=== PATIENT | male | born 1975 | race African-American/Black ===

== ENCOUNTER 2018-01-31 14:48 | Emergency (ER) | payer OTHER, SELFPAY ==
--- OUTSIDE RECORDS SUMMARY | 2018-01-31 14:49 | XMS REPORT | Clinical Summary ---
:[address] [facility] Address [address] [place] [address] Phone Care Team Providers Name Role Phone Unavailable Primary Care Provider Unavailable Allergies No Known Allergies Current Medications No known medications Active Problems Problem Noted Date HBV (hepatitis B virus) infection 01/14/2015 Last Assessment & Plan: Likely acquired through sexual transmission. Recently diagnosed with no prior history of HBV infection. He has no evidence of cirrhosis, low viral load and normal liver enzymes. Currently he does not me et treatment criteria. He may be a chronic inactive carrier. Because of the fluctuating course of HBeAg negative chronic hepatitis, serial follow-up is needed to differentiate an inactive carrier state from HBeAg negative chronic hepatitis Immunity status testing 01/14/2015 Last Assessment & Plan: Current CDC guidelines recommend in all patients with chronic liver disease, the following vaccines should be administered: 1. Tetanus vaccine every 10 years 2. Pneumococcal vaccine every 5 years 3. Seasonal influenza vaccines 4. Hepatitis A/B vaccines when deemed appropriate Screening for cancer 01/14/2015 Last Assessment & Plan: Hepatitis B Virus is an oncogenic virus that can induce hepatocellular carcinoma (HCC), even in the absence of cirrhosis. The patient's risk of developing HCC is directly related to the patient's HBV v iral load. Thus, for patients with HBV infection, we recommend contrast imaging with MRI or CT in addition to measuring serum AFP every 6 months. Hep B w/o coma, chronic, w/o delta (HCC) 01/14/2015 Family History Medical History Relation Name Comments Diabetes Father Liver disease Mother Hep B Relation Name Status Comments Father Alive Mother Alive Social History Tobacco Use Types Packs/Day Years Used Date Never Smoker Smokeless Tobacco: Never Used Alcohol Use Drinks/Week oz/Week Comments Yes Social-Beer Sex Assigned at Date Recorded Not on file Last Filed Vital Signs Not on file Plan of Treatment Health Maintenance Due Date Last Done Comments INFLUENZA VACCINE 07/25/2018 Results Not on fileafter 01/30/2017
[2018-01-31] MEDS ORDERED: MORPHINE 4 MG/ML SYR ONE (15:39)
[2018-01-31] MEDS ORDERED: NA CHLORIDE 0.9% 1,000 ML ONE (15:39)
[2018-01-31] MEDS ORDERED: ONDANSETRON 4 MG/2 ML VIAL ONE (15:39)
[2018-01-31 16:05] LABS: Absolute Lymphocytes (CBC) 1.5 K/uL (0.7-4.9); Absolute Monocytes 0.4 K/uL (0.1-1.3); Absolute Neutrophil 2.7 K/uL (1.8-8.0); Basophils % 0.4 % (0-1.3); Hematocrit 43.6 % (39.6-49.0); Lymphocytes % 32.6 % (15.3-44.8); MCV 91.9 fL (80-100); MPV 8.5 fL (7.6-11.3); Monocytes % 7.6 % (3.3-12.3); RBC Red Blood Cell Count 4.75 M/uL (4.33-5.43)
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
[2018-01-31 16:16] LABS: Bicarbonate 28 mEq/L (21-31); Glucose Level 86 mg/dL (65-120); Potassium 4.4 mEq/L (3.6-5.0); Sodium Level 136 mEq/L (135-145)
[2018-01-31 16:17] LABS: BUN Blood Urea Nitrogen 18 mg/dL (6-20); Glomerular Filtration Rate > 60 mL/min (>60); Glomerular Filtration Rate > 90 mL/min (=/>90)
--- NOTE | 2018-01-31 16:48 | EKG ---
Test Date: 2018-01-31 Test Time: 15:49:22 Casey Saw Operator: FOSTER MEASUREMENT RESULTS: Intervals: Rate: 59 CO: 142 QRSD: 72 QT: 406 QTc: 401 [place]: P: 67 CO: 142 QRS: 61 T: 30 INTERPRETIVE STATEMENTS: Sinus bradycardia Otherwise normal ECG No previous ECG available for comparison Electronically Signed On 01-31-18 16:47:59 CDT by Bladimir Hernandez
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
[2018-01-31 17:29] LABS: Urine Blood NEGATIVE (NEG); Urine Glucose NEGATIVE (NEG); Urine Protein NEGATIVE (NEG); Urine pH 6.5 (5.0-7.0)
[2018-01-31] MEDS ORDERED: FENTANYL CITR 100 MCG/2 ML ONE ×2 (17:44→19:10)
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
== END 2018-01-31 19:47 | disposition short-term general hospital (02) ==
LOC: ER 14:48
DX: J94.8 Other specified pleural conditions (principal); V49.40XA Driver injured in collision with unspecified motor vehicles in traffic accident, initial encounter
CPT/HCPCS: 36415; 70450; 71045; 71260; 72125; 74177; 80048; 81003; 84484; 85025; 86850; 86900; 86901; 93005; 99285; J2405; J3010; J7030; Q9967

== ENCOUNTER 2019-12-15 17:40 | Emergency (ER) | payer OTHER, SELFPAY ==
--- OUTSIDE RECORDS SUMMARY | 2019-12-15 17:42 | XMS REPORT | Summary of Care ---
:1975 Author Organization [facility] - Health Address [address] [place] [address] Care Team Providers Name Role Phone Tommy Dunbar MD Primary Care Provider Encounter Details Date Type Department Care Team Description 07/06/2019 Orders Only [facility] Doctor Unassigned, No [address] [facility] [place] [address] [address] [place] [address] Allergies No Known Allergiesdocumented as of this encounter (statuses as of 07/06/2019) Medications Medication Sig Dispensed Refills Start Date End Date Status naproxen (NAPROSYN) 500 Take 1 Tab by 20 0 07/24/2010 Active mg tablet mouth 2 (two) times daily. documented as of this encounter (statuses as of 07/06/2019) Active Problems Problem Noted Date Redundant prepuce and phimosis 05/06/2009 documented as of this encounter (statuses as of 07/06/2019) Social History Tobacco Use Types Packs/Day Years Used Date Never Smoker Alcohol Use Drinks/Week oz/Week Comments Yes occasional 2-3 beers/weekend Sex Assigned at Date Recorded Not on file Job Start Date Occupation Industry Not on file Not on file Not on file Travel History Travel Start Travel End No recent travel history available. documented as of this encounter Last Filed Vital Signs Not on filedocumented in this encounter Plan of Treatment Date Type Specialty Care Team Description 07/06/2019 Office Visit Family Medicine Tommy Dunbar III, MD [address] [place] [address] Dr. [address] [place], [place] [address] Health Maintenance Due Date Last Done Comments DTaP,Tdap,and Td Vaccines (1 - 1996 Tdap) INFLUENZA VACCINE (#1) 2019 PNEUMOCOCCAL 0-64 YEARS COMBINED Aged Out No longer eligible based on SERIES patient's age to complete this topic documented as of this encounter Procedures Procedure Name Priority Date/Time Associated Diagnosis Comments ASSIGNMENT OF BENEFITS Routine 07/06/2019 3:08 PM CDT documented in this encounter Results Not on filedocumented in this encounter Insurance Payer Benefit Plan / Subscriber ID Effective Dates Phone Address Type Group [facility] [id number] 2014-Presen PPO/POS PPO/POS t documented as of this encounter
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
--- OUTSIDE RECORDS SUMMARY | 2019-12-15 17:42 | XMS REPORT ---
:1975 Author [facility] Address [address] [place] [address] Dr. Huggins [address] [place] [address] Care Team Providers Name Role Phone Unavailable Unavailable Unavailable Problems This patient has no known problems. Allergies, Adverse Reactions, Alerts This patient has no known allergies or adverse reactions. Medications This patient has no known medications.
--- OUTSIDE RECORDS SUMMARY | 2019-12-15 17:42 | XMS REPORT | Summary of Care ---
:1975 Author Organization [facility] Address [address] [place] [address] Care Team Providers Name Role Phone Tommy Dunbar MD Primary Care Provider Reason for Referral (Routine) Status Reason Specialty Diagnoses / Referred By Referred To Procedures Contact Contact New Request Nephrology Diagnoses Well adult exam Tommy Dunbar III, Procedures CONSULT/REFERRAL NEPHROLOGY [address] [place] [address] [address] [place] [address] Reason for Visit Reason Comments Follow-up Encounter Details Date Type Department Care Team Description 07/06/2019 Office Visit [facility] Pediatric Tommy Dunbar III, Well adult exam and Adult Primary MD (Primary Dx) Care- [address] [place] [address] , [address] [place] [address] [place], [place] [phone] [address] [phone] Allergies No Known Allergiesdocumented as of this encounter (statuses as of 07/10/2019) Medications Medication Sig Dispensed Refills Start Date End Date Status naproxen (NAPROSYN) 500 Take 1 Tab by 20 0 07/24/2010 Active mg tablet mouth 2 (two) times daily. documented as of this encounter (statuses as of 07/10/2019) Active Problems Problem Noted Date Redundant prepuce and phimosis 05/06/2009 documented as of this encounter (statuses as of 07/10/2019) Social History Tobacco Use Types Packs/Day Years [...] Well adult exam - COMP. METABOLIC PANEL (57026) - LIPID PANEL (83238)(TOTAL CHOLESTEROL, TRIGLYCERIDES, HDL) Cyst does not require any rxElectronically signed by Tommy Dunbar III, MD at 3:45 PM CDTdocumented in this encounter Plan of Treatment Health Maintenance Due Date Last Done Comments DTaP,Tdap,and Td Vaccines (1 - 1996 Tdap) INFLUENZA VACCINE (#1) 2019 PNEUMOCOCCAL 0-64 YEARS COMBINED Aged Out No longer eligible based on SERIES patient's age to complete this topic documented as of this encounter Procedures Procedure Name Priority Date/Time Associated Diagnosis Comments LIPID PANEL Routine 07/06/2019 3:47 PM Well adult exam Results for this (50000)(TOTAL CDT procedure are in CHOLESTEROL, the results TRIGLYCERIDES, HDL) section. COMP. METABOLIC Routine 07/06/2019 3:47 PM Well adult exam Results for this PANEL (42000) CDT procedure are in the results section. documented in this encounter Results LIPID PANEL (66758)(TOTAL CHOLESTEROL, TRIGLYCERIDES, HDL) (07/06/2019 3:47 PM CDT) CHOL 160 120 - 200 mg/dL [facility] HDL 51 >40 mg/dL [facility] HDLC RATIO 3.1 <=5.0 [facility] TRIG 148 30 - 170 mg/dL [facility] LDL CHOL 79 <=160 mg/dL [facility] VLDL 30 5 - 60 mg/dL [facility] Specimen Blood Performing Organization Address City/State/Zipcode Phone Number [facility] CLIA: [id number], [address] [place] [address] COMP. METABOLIC PANEL (12153) (07/06/2019 3:47 PM CDT) NA 142 135 - 145 [facility] mmol/L [facility] K 4.3 3.5 - 5.0 [facility] mmol/L [facility] CL 106 98 - 108 mmol/L [facility] CO2 TOTAL 28 23 - 31 mmol/L [facility] AGAP 8 2 - 16 [facility] BUN 17 7 - 23 mg/dL [facility] GLUCOSE 98 70 - 110 mg/dL [facility] CREATININE 1.33 (H) 0.60 - 1.25 [facility] mg/dL [facility] TOTAL BILI 0.7 0.1 - 1.1 mg/dL [facility] CALCIUM 9.5 8.6 - 10.6 [facility] mg/dL [facility] T PROTEIN 7.4 6.3 - 8.2 g/dL [facility] ALBUMIN 4.3 3.5 - 5.0 g/dL [facility] ALK PHOS 75 34 - 122 U/L [facility] ALT(SGPT) 39 9 - 51 U/L [facility] AST(SGOT) 31 13 - 40 U/L [facility] eGFR Calculation 59.3 mL/min/1.73m2 [facility] (Non[facility] Latvian) eGFR Calculation 71.8 mL/min/1.73m2 [facility] () [facility] Specimen Blood Narrative Performed At Association of Glomerular Filtration Rate (GFR) [facility] and Staging of Kidney Disease* + + +- + | GFR (mL/min/1.73 m2)| With Kidney Damage|Without Kidney Damage + + +- + |>90| Stage one| Normal + + +- + |60-89|S tage two| Decreased GFR + + +- + |30-59|S tage three| Stage three + + +- + |15-29|S tage four | Stage four + + +- + |<15 (or dialysis)|Stage five | Stage five + + +- + *Each stage assumes the associated GFR level has been in effect for at least three months.Stages 1 to 5, with or without kidney disease, indicate chronic kidney disease. Notes: Determination of stages one and two (with eGFR >59mL/min/1.73 m2) requires estimation of kidney damage for at least three months as defined by structural or functional abnormalities of the kidney, manifested by either: Pathological abnormalities or Markers of kidney damage (including abnormalities in the composition of the blood or urine or abnormalities in imaging tests). Performing Organization Address City/State/Zipcode Phone Number [facility] CLIA: [id number], [address] [place] [address] documented in this encounter Visit Diagnoses Diagnosis Well adult exam - Primary Routine general medical examination at a health care facility documented in this encounter Insurance Payer Benefit Plan / Subscriber ID Effective Dates Phone Address Type Group [facility] [id number] 2014-[employer] PPO/POS PPO/POS t documented as of this encounter
--- OUTSIDE RECORDS SUMMARY | 2019-12-15 17:42 | XMS REPORT | Summary of Care ---
:1975 Author Organization [facility] Address [address] [place] [address] Care Team Providers Name Role Phone Tommy Dunbar MD Primary Care Provider Reason for Visit Reason Comments LAB Encounter Details Date Type Department Care Team Description 07/06/2019 Quality Control Engineer Visit [facility] Tommy Dunbar III, MD [address] [place] [address] [address] [place] [address] Routine general Professional Office 2, [facility] Lab medical examination Building Phlebotomy at a health care Lab facility Professional Office Building [address] [place] [address] [address], [address] [place] [address] Allergies No Known Allergiesdocumented as of this [...] filedocumented in this encounter Plan of Treatment Health Maintenance Due Date Last Done Comments DTaP,Tdap,and Td Vaccines (1 - 1996 Tdap) INFLUENZA VACCINE (#1) 2019 PNEUMOCOCCAL 0-64 YEARS COMBINED Aged Out No longer eligible based on SERIES patient's age to complete this topic documented as of this encounter Results Not on filedocumented in this encounter Visit Diagnoses Diagnosis Routine general medical examination at a health care facility documented in this encounter Insurance Payer Benefit Plan / Subscriber ID Effective Dates Phone Address Type Group [facility] [id number] 2014-Presen PPO/POS PPO/POS t documented as of this encounter
--- OUTSIDE RECORDS SUMMARY | 2019-12-15 17:43 | XMS REPORT | Summary of Care ---
:1975 Author Organization [facility] Address [address] [place] [address] Care Team Providers Name Role Phone Tommy Dunbar MD Primary Care Provider Reason for Visit Reason Comments Notification Encounter Details Date Type Department Care Team Description 07/11/[address] [facility] Pediatric and Tommy Dunbar III, MD Notification Adult Primary Care- [address] [place] [address] Dr. [address] [place] [address] , [place] [address] [facility] [phone] [place] [address] [phone] Allergies No Known Allergiesdocumented as of this encounter (statuses as of 07/12/2019) Medications Medication Sig Dispensed Refills Start Date End Date Status naproxen (NAPROSYN) 500 Take 1 Tab by 20 0 07/24/2010 Active mg tablet mouth 2 (two) times daily. documented as of this encounter (statuses as of 07/12/2019) Active Problems Problem Noted Date Redundant prepuce and phimosis 05/06/2009 documented as of this encounter (statuses as of 07/12/2019) Social History Tobacco Use Types Packs/Day Years [...] ID Effective Dates Phone Address Type Group [facility] [id number] 2014-Presen PPO/POS PPO/POS t documented as of this encounter
--- OUTSIDE RECORDS SUMMARY | 2019-12-15 17:43 | XMS REPORT | Summary of Care ---
:1975 Author Organization [facility] - [facility] Address [address] [place] [address] Care Team Providers Name Role Phone Tommy Dunbar MD Primary Care Provider Reason for Visit Reason Comments Lab Results Encounter Details Date Type Department Care Team Description 07/11/2019 Telephone [facility] Pediatric and Tommy Dunbar III, MD Lab Results Adult Primary Care- [address] [place] [address] Dr. [address] [place] [address] , [place], [place] [address] [address] [place] [address] [phone] Allergies No Known Allergiesdocumented as of this encounter (statuses as of 07/11/2019) Medications Medication Sig Dispensed Refills Start Date End Date Status naproxen (NAPROSYN) 500 Take 1 Tab by 20 0 07/24/2010 Active mg tablet mouth 2 (two) times daily. documented as of this encounter (statuses as of 07/11/2019) Active Problems Problem Noted Date Redundant prepuce and phimosis 05/06/2009 documented as of this encounter (statuses as of 07/11/2019) Social History Tobacco Use Types Packs/Day Years [...] ID Effective Dates Phone Address Type Group [facility] [id number] 2014-Presen PPO/POS PPO/POS t documented as of this encounter
--- NOTE | 2019-12-15 18:37 | ER ---
Nurse's Notes [facility] Name: Eliazar Kirby Age: 44 yrs Sex: Male : 1975 Arrival Date: 12/15/2019 Time: 17:44 Bed Waiting Private MD: Damian Gonzales Diagnosis: Presentation: 12/15 17:51 Presenting complaint: Patient states: shortness of breath for the past month, patient aj1 also reports post-nasal drip for the past month. Reports cough. Denies fever. Transition of care: patient was not received from another setting of care. Onset of symptoms was October 2019. Risk Assessment: Do you want to hurt yourself or someone else? Patient reports no desire to harm self or others. Initial Sepsis Screen: Does the patient meet any 2 criteria? No. Patient's initial sepsis screen is negative. Does the patient have a suspected source of infection? No. Patient's initial sepsis screen is negative. Care prior to arrival: None. 17:51 Method Of Arrival: Ambulatory aj 17:51 Acuity: SUKHI 4 aj1 18:35 Note Patient states that he had a family emergency and he needs to leave. aj1 Triage Assessment: 17:53 General: Appears in no apparent distress. comfortable, Behavior is calm, cooperative, aj1 appropriate for age. Pain: Denies pain. EENT: Reports nasal congestion nasal discharge post nasal drip. Neuro: Level of Consciousness is awake, alert, obeys commands, Oriented to person, place, time, situation. Cardiovascular: Patient's skin is warm and dry. Respiratory: Reports shortness of breath cough that is hacking, persistent Airway is patent Respiratory effort is even, unlabored, Respiratory pattern is regular, symmetrical, Onset: The symptoms/episode began/occurred one month ago, the patient has mild shortness of breath. Historical: - Allergies: 17:53 No Known Allergies; aj1 - Home Meds: 17:53 None [Active]; aj1 - PMHx: 17:53 None; aj1 - PSHx: 17:53 None; aj1 - Immunization history:: Flu vaccine is not up to date. - Coronavirus screen:: The patient has NOT traveled to [place] in the past 14 days. - Social history:: Smoking status: Patient/guardian denies using tobacco. - Ebola Screening: : Patient denies travel to an Ebola-affected area in the 21 days before illness onset. Vital Signs: 17:53 BP 130 / 77; Pulse 78; Resp 18; Temp 98.9; Pulse Ox 99% on R/A; Weight 83.91 kg (R); aj1 Height 5 ft. 9 in. (175.26 cm) (R); Pain 0/10; 17:53 Body Mass Index 27.32 (83.91 kg, 175.26 cm) aj1 ED Course: 17:44 Patient arrived in ED. ag5 17:44 Damian Gonzales MD is Private Physician. ag5 17:52 Triage completed. aj1 17:53 Arm band placed on Patient placed in waiting room, Patient notified of wait time. aj1 Administered Medications: No medications were administered Outcome: 18:36 Patient left the ED. aj1 Signatures: Stormy Ac, RN RN aj1 Jaiden Hester [facility]
[2019-12-15 18:42] VITALS: BP 130/77; TEMP 98.9; O2SAT 99
== END 2019-12-15 18:36 | disposition left against medical advice (07) ==
LOC: ER 17:40
DX: R06.02 Shortness of breath (principal); Z53.21 Procedure and treatment not carried out due to patient leaving prior to being seen by health care provider
CPT/HCPCS: 99281

== ENCOUNTER 2020-10-22 21:38 | Emergency (ER) | payer OTHER ==
--- OUTSIDE RECORDS SUMMARY | 2020-10-22 21:40 | XMS REPORT | Clinical Summary ---
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 Recently diagnosed with no prior history of HBV infection. He has no evidence of cirrhosis, low viral load and normal liver enzymes. Currently he does not me et treatment criteria. He may be a chron ic inactive carrier. Because of the fluctuating course [...] 5 years 3. Seasonal influenza vaccines 4. Hepati tis A/B vaccines when deemed appropriate Screening for [...] Hep B w/o coma, chronic, w/o delta 01/14/2015 Family History Medical History Relation Name Comments Diabetes Father Liver disease Mother Hep B Relation Name Status Comments Father Alive Mother Alive Social History Tobacco Use Types Packs/Day Years Used Date Never Smoker Smokeless Tobacco: Never Used Alcohol Use Drinks/Week oz/Week Comments Yes Social-Beer Sex Assigned at Date Recorded Not on file Last Filed Vital Signs Not on file Plan of Treatment Not on file Results Not on fileafter 10/22/2019 Insurance Payer Benefit Plan / Subscriber ID Effective Dates Phone Addre ss Type Group [facility] [id number] 2016-Present HMO/POS - [facility] [address] (Home) [address] [place] [id number]
--- OUTSIDE RECORDS SUMMARY | 2020-10-22 21:41 | XMS REPORT | Continuity of Care Document ---
:1975 Author Organization [facility] t Address [address] [place] [address] Care Team Providers Name Role Phone Sharpless Primary Care Physician Rocio PEREA Attending Clinician 2, Lab Attending Clinician Unavailable Problems Condition Condition Condition Status Onset Resolution Last Treating Co mments Source Name Details Category Date Date Treatment Clinician Date HBV HBV Disease Active Last [facility] ([facility]patitis ([facility]patitis [facility] - B virus) B virus) 00:00: t & Plan: Med ical infection infection 00 Likely Cent er acquired through sexual transmiss ion. Recently diagnosed with no prior history of HBV infection . He has no evidence of cirrhosis , low viral load and normal liver enzymes. Currently he does not meet treatment criteria. He may be a chronic inactive carrier. Because of the fluctuati ng course of HBeAg negative chronic hepatitis , serial follow-up is needed to different iate an inactive carrier state from HBeAg negative chronic hepatitis Screening Screening Disease Active Last [facility] cancer [facility] cancer [facility] - 00:00: t & Plan: Medical 00 Hepatitis Center B Virus is an oncogenic virus that can induce hepatocel lular carcinoma (HCC), even in the absence of cirrhosis . The patient's risk of developin g HCC is directly related to the patient's HBV viral load. Thus, for patients with HBV infection , we recommend contrast imaging with MRI or CT in addition to measuring serum AFP every 6 months. Hep B w/o Hep B w/o Disease Active [facility] coma, coma, 01-[address] [facility] - chronic, chronic, 00:00: Medica l w/o delta w/o delta 00 Cent er Allergies, Adverse Reactions, Alerts This patient has no known allergies or adverse reactions. Family History Family Member Diagnosis Comments Start Date Stop Date Source Natural father Diabetes [facility] Natural mother Liver disease [facility] Social History Social Habit Start Date Stop Date Quantity Comments Source Sex Assigned At [facility] Tobacco use and 2015-01-14 2015-01-14 Never used [facility] - exposure 00:00:00 00:00:00 [facility] Alcohol intake 2015-01-14 2015-01-14 Current drinker [facility] Lizy Chao - 00:00:00 00:00:00 of [facility] (finding) Alcohol Comment 2015-01-14 2015-01-14 Social-Beer [facility] St Nina ukes - 00:00:00 00:00:00 [facility] Smoking Status Start Date Stop Date Source Never smoker [facility] Medications This patient has no known medications. Procedures This patient has no known procedures. Encounters Start End Encounter Admission Attending Care Care Encounter Source Date/Time Date/Time Type Type Clinicians Facility Department ID 2020-08-06 2020-08-06 Telephone [facility] [id number] 00:00:00 00:00:00 [facility] [id number] Janeth [id number] Kenneth [id number] [facility] 044 [facility] 2020-08-01 2020-08-01 Vendor Quality Supervisor 2, Adc Lab [facility] [id number] 10:37:45 10:52:45 Visit Taisha [id number] Janeth [id number] Kenneth [id number] [facility] 353 [facility] 2020-08-01 2020-08-01 [id number] 09:54:45 10:32:59 Visit Em[facility] Sumner [id number] Janeth [id number] Kenneth [phone] [facility] 044 Building Results This patient has no known results.
--- OUTSIDE RECORDS SUMMARY | 2020-10-22 21:41 | XMS REPORT | Summary of Care ---
:[address] [facility] Address [address] [place] [address] Care Team Providers Name Role Phone Emory Chan MD Primary Care Provider Reason for Visit Reason Comments LAB WORK Encounter Details Date Type Department Care Team Description 08/01/2020 [employer]ian [employer] Visit [facility] Aleks Chan MD [address] [place] [address] Dr Torres [address] [place], [place] [id number] Well adult exam Professional Office 2, [facility] Lab Building Phlebotomy Lab Professional Office Building [address] [place] [address] , [address] [place] [address] Allergies No Known Allergiesdocumented as of this encounter (statuses as of 08/01/2020) Medications No known medicationsdocumented as of this encounter (statuses as of 08/01/2020) Active Problems Problem Noted Date Routine general medical examination [facility] 08/01/2020 Redundant prepuce and phimosis 05/06/2009 documented as of this encounter (statuses as of 08/01/2020) Social History Tobacco Use Types Packs/Day Years Used Date Never Smoker Smokeless Tobacco: Never Used Alcohol Use Drinks/Week oz/Week Comments Yes occasional 2-3 b eers/weekend Sex Assigned at Date Recorded Not on file COVID-19 Exposure Response Date Recorded In the last month, have you been in contact with No / Unsure 08/01/2020 9:51 AM CDT someone who was confirmed or suspected to have Coronavirus / COVID-19? documented as of this encounter Last Filed Vital Signs Not on filedocumented in this encounter Nursing Notes Carmita Sheriff - 08/01/2020 11:00 AM CDT Venipuncture collection performed by clean technique on the left anticubitus. Total of 1 attempts were made. Slight pressure and a bandage/dressing were applied to the site(s). The patient experienced no complications. The following specimens were processed according to instructions and sent to [facility] laboratories per lab order on today: LT BLUE SST 1 RED LAV 2 PPT DK GREEN (LiHep) DK GREEN (SodH) MIRANDA DK BLUE (K2) DK BLUE (S) ACD Blood Culture NIPT/NTD Patient has been identified by and name and was provided with cup, antiseptic towelette, and clean catch instructions. 1 urine specimen(s) sent. Unpreserved 1 Urine Culture Aptima tube Other urine documented in this encounter Plan of Treatment Date Type Specialty Care Team Description 08/01/2021 Office Visit Family Medicine Emory Chan MD [address] [place] [address] [place] [phone] 15 Health Maintenance Due Date Last Done Comments INFLUENZA VACCINE (#1) 2021 Postponed from 06/25/2020 (Parent Refused) DTaP,Tdap,and Td Vaccines (1 - 08/01/2021 P ostponed from 1996 Tdap) (Refused) Depression Screening 08/01/2021 08/01/2020 PNEUMOCOCCAL 0-64 YEARS COMBINED Aged Out No longer eligible based on SERIES patient's age to complete this topic documented as of this encounter Results Not on filedocumented in this encounter Visit Diagnoses Diagnosis Well adult exam Routine general medical examination at a health care facility documented in this encounter Insurance Payer Benefit Plan / Subscriber ID Effective Dates Phone Addre ss Type Group [facility] [id number] 2014-Presen PPO/POS PPO/POS t documented as of this encounter
--- OUTSIDE RECORDS SUMMARY | 2020-10-22 21:41 | XMS REPORT | Summary of Care ---
:1975 Author Organization [facility] - Health Address [address] [place] [address] Care Team Providers Name Role Phone Tommy Dunbar MD Primary Care Provider Encounter Details Date Type Department Care Team Description 08/01/2020 Letter (Out) [facility] [employer] Message s Doctor Unassigned, No 301 [facility] [place] [address] [address] [facility] [phone] [place] [address] Allergies No Known Allergiesdocumented as of this encounter (statuses as of 08/01/2020) Medications Medication Sig Dispensed Refills Start Date End Date Status naproxen (NAPROSYN) 500 Take 1 Tab by 20 0 07/24/2010 Active mg tablet mouth 2 (two) times daily. documented as of this encounter (statuses as of 08/01/2020) Active Problems Problem Noted Date Redundant prepuce [...] Treatment Date Type Specialty Care Team Description 08/01/2020 Office Visit Family Medicine Emory Chan MD [address] Torres [address] [place] [address] [phone] Health Maintenance Due Date Last Done Comments DTaP,Tdap,and Td Vaccines (1 - 1996 Tdap) INFLUENZA VACCINE (#1) 2020 Depression Screening 09/20/2020 09/20/2019 PNEUMOCOCCAL 0-64 YEARS COMBINED Aged Out No longer eligible based on SERIES patient's age to complete this topic documented as of this encounter Results Not on filedocumented in this encounter Insurance Payer Benefit Plan / Subscriber ID Effective Dates Phone Addre ss Type Group [facility] [id number] 2014-Presen PPO/POS PPO/POS t documented as of this encounter
--- OUTSIDE RECORDS SUMMARY | 2020-10-22 21:41 | XMS REPORT | Summary of Care ---
:1975 Author Organization [facility] - Health Address [address] [place] [address] Care Team Providers Name Role Phone Tommy Dunbar MD Primary Care Provider Encounter Details Date Type Department Care Team Description 08/01/2020 Orders Only [facility] Doctor Unassigned, No 301 [facility] Name [place] [phone] [place] [phone] Allergies No Known Allergiesdocumented as of this [...] Visit Family Medicine Emory Chan MD [address] [place] [address] Dr Torres [address] [place], [place] [address] [phone] Health Maintenance Due Date Last Done Comments DTaP,Tdap,and Td Vaccines (1 - 1996 Tdap) INFLUENZA VACCINE (#1) 2020 Depression Screening 09/20/2020 09/20/2019 PNEUMOCOCCAL 0-64 YEARS COMBINED Aged Out No longer eligible based on SERIES patient's age to complete this topic documented as of this encounter Procedures Procedure Name Priority Date/Time Associated Diagnosis Comme nts ASSIGNMENT OF BENEFITS Routine 08/01/2020 9:52 AM CDT documented in this encounter Results Not on filedocumented in this encounter Insurance Payer Benefit Plan / Subscriber ID Effective Dates Phone Addre ss Type Group [facility] [id number] 2014-Presen PPO/POS PPO/POS t documented as of this encounter
--- OUTSIDE RECORDS SUMMARY | 2020-10-22 21:41 | XMS REPORT | Summary of Care ---
:1975 Author Organization [facility] - [facility] Address [address] [place] [address] Care Team Providers Name Role Phone Emory Chan MD Primary Care Provider Reason for Visit Reason Comments Yearly Visit LAB WORK Encounter Details Date Type Department Care Team Description 08/01/2020 Office Visit [facility] Pediatric Emory Chan W ell adult exam and Adult Primary MD (Primary Dx) Care- [address], [address] [place], [place] [address] [place] [address] [phone] [address] [phone] Allergies No Known Allergiesdocumented as of this encounter (statuses as of 08/01/2020) Medications Medication Sig Dispensed Refills Start Date End Date Status naproxen Take 1 Tab 20 0 07/24/2010 08/01/2020 Discont inued (NAPROSYN) 500 mg by mouth 2 ( Therapy tablet (two) times complete d) daily. documented as of this encounter (statuses as of 08/01/2020) Active Problems Problem Noted Date Routine general medical examination at a health care f acility 08/01/2020 Redundant prepuce and phimosis 05/06/2009 documented [...] Sign Reading Time Taken Comments Blood Pressure 99/64 08/01/2020 10:02 AM CDT Pulse 70 08/01/2020 10:02 AM CDT Temperature 37.2 C (98.9 F) 08/01/2020 10:02 AM CDT Respiratory Rate 20 08/01/2020 10:02 AM CDT Oxygen Saturation 98% 08/01/2020 10:02 AM CDT Inhaled Oxygen Concentration - - Weight 87.1 kg (192 lb) 08/01/2020 10:02 AM CDT Height 170.2 cm (5' 7") 08/01/2020 10:02 AM CDT Body Mass Index 30.07 08/01/2020 10:02 AM CDT documented in this encounter Patient Instructions Patient InstructionsEdEmory bergman MD - 08/01/2020 10:00 AM CDT Patient Education Prevention Guidelines,Men Ages 40 to 49 Screening tests and vaccines are an important part of managing your health. A screening test is doneto find possible disorders or diseases in people who don't have any symptoms. The goal is to find a disease early so lifestyle changes can be made and you can be watched more closely to reduce the riskof disease, or to detect it early enough to treat it most effectively. Screening tests are not considered diagnostic, but are used to determine if more testing is needed.Health counseling is essential, too. Below are guidelines for these, for men ages 40 to 49. Talk with your healthcare provider to make sure youre up to date on what you need. Screening Who needs it How often Alcohol misuse All men in this age group At routine exams Blood pressure All men in this age group Yearly checkup if your blood pressure reading is normal Normal blood pressure is less than 120/80 mm Hg If your blood pressure is higher than normal, follow the advice of your healthcare provider Depression All men in this age group At routine exams Type 2 diabetes or prediabetes All men beginning at age 45 and men without symptoms at any age whoare overweight or obese and have 1 or more other risk factors for diabetes At least every 3 years (yearly if blood sugar has begun to rise) Type 2 diabetes All men with prediabetes Every year Hepatitis C Men at increased risk for infection talk with your healthcare provider At routine exams High cholesterol or triglycerides All men ages 35 and older, and younger men at high risk for coronary artery disease At least every 5 years HIV All men At routine exams Obesity All men in this age group At routine exams Prostate cancer Starting at age 45, talk to healthcare provider about risks and benefits of digital rectal exam (RICHA) and prostate-specific antigen (PSA) screening1 At routine exams Syphilis Men at increased risk for infection talk with your healthcare provider At routine exams Tuberculosis Men at increased risk for infection talk with your healthcare provider Check with your healthcare provider Vision All men in this age group Every 2 to 4 years if no risk factors for eye disease2 Vaccine Who needs it How often Chickenpox (varicella) All men in this age group who have no record of this infection or vaccine 2 doses; the second dose should be given at least 4 weeks after the first dose Hepatitis A Men at increased risk for infection talk with your healthcare provider 2 doses givenat least 6 months apart Hepatitis B Men at increased risk for infection talk with your healthcare provider 3 doses over 6 months; second dose should be given 1 month after the first dose; the third dose should be given atleast 2 months after the second dose and at least 4 months after the first dose Haemophilus influenzae Type B (HIB) Men at increased risk for infection talk with your healthcare provider 1 to 3 doses Influenza (flu) All men in this age group Once a year Measles, mumps, rubella (MMR) All men in this age group who have no record of these infections or vaccines 1 or 2 doses Meningococcal Men at increased risk for infection talk with your healthcare provider 1 or more doses Pneumococcal conjugate vaccine (PCV13) and pneumococcal polysaccharide vaccine (PPSV23) Men at increased risk for infection talk with your healthcare provider PCV13: 1 dose ages 19 to 65 (protects against 13 types of pneumococcal bacteria) PPSV23: 1 to2 doses through age 64, or 1 dose at 65 or older (protects against 23 types of pneumococcal bacteria) Tetanus/diphtheria/ pertussis (Td/Tdap) booster All men in this age group Td every 10 years, or a one-time dose of Tdap instead of a Td booster after age 18, then Td every 10 years Counseling Who needs it How often Diet and exercise Menwho are overweight or obese When diagnosed, and then at routine exams Sexually transmitted infection prevention Men at increased risk for infection talk with your healthcare provider At routine exams Use of daily aspirin Men ages 45 to 79 at risk for cardiovascular health problems At routine exams Use of tobacco and the health effects it can cause All men in this age group Every exam [address] [place] [address] [facility] [employer] last reviewed this educational content on 11/25/201619995104-4207 [employer]. [address] [place] [address]. All rights reserved. This information is not intended as a substitute for professional medical care. Always follow your healthcare professional's instructions. documented in this encounter Progress Notes Emory Chan MD - 08/01/2020 10:00 AM CDT Cc: Chief Complaint Patient presents with Yearly Visit LAB WORK Eliazar Kirby is a 45 year old male presenting to establish care with a new provider. 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 Patient has no complains at this time. He is due to influenza and tetanus vaccinations, but defers on both at this time. Patient denies anxiety and depression, has notes good social support. Has 3 children, all grown, he lives with his . Patient reports he has been working out, lost about 30 lbs since last year, patient made changes to his diet as well. Allergies Eliazar has No Known Allergies. Medications Outpatient Medications Prior to Visit Medication Sig Dispense Refill naproxen (NAPROSYN) 500 mg tablet Take 1 Tab by mouth 2 (two) times daily. 20 0 No facility-administered medications prior to visit. Histories History reviewed. No pertinent past medical history. History reviewed. No pertinent surgical history. Social History Socioeconomic History Marital status: Spouse name: Not on file Number of children: Not on file Years of education: Not on file Highest education level: Not on file Occupational History Not on file Social Needs Financial resource strain: Not on file Food insecurity Worry: Not on file Inability: Not on file Transportation needs Medical: Not on file Non-medical: Not on file Tobacco Use Smoking status: Never Smoker Smokeless tobacco: Never Used Substance and Sexual Activity Alcohol use: Yes Comment: occasional 2-3 beers/weekend Drug use: No Sexual activity: Not on file Lifestyle Physical activity Days per week: Not on file Minutes per session: Not on file Stress: Not on file Relationships Social connections Talks on phone: Not on file Gets together: Not on file Attends jewish service: Not on file Active member of club or organization: Not on file Attends meetings of clubs or organizations: Not on file Relationship status: Not on file Intimate partner violence Fear of current or ex partner: Not on file Emotionally abused: Not on file Physically abused: Not on file Forced sexual activity: Not on file Other Topics Concern Not on file Social History Narrative 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 No pertinent family history. Review of Systems Constitutional: Negative for unexpected weight change, weight gain and weight loss. Eyes: Negative for visual disturbance. Respiratory: Negative for chest tightness and shortness of breath. Cardiovascular: Negative for chest pain and palpitations. Gastrointestinal: Negative for constipation and diarrhea. Musculoskeletal: Negative for back pain and myalgias. Skin: Negative for color change and rash. Neurological: Negative for weakness. Psychiatric/Behavioral: The patient is not nervous/anxious. Endocrine: Negative for weight gain and weight loss. Vital Signs BP 99/64 (BP Location: Left arm, Patient Position: Sitting, BP CUFF SIZE: Adult Medium) | Pulse 70| Temp 37.2 C (98.9 F) (Temporal Artery) | Resp 20 | Ht 5' 7" (1.702 m) | Wt 192 lb (87.1 kg) | SpO2 98% | BMI 30.07 kg/m Physical Exam HENT: Head: Normocephalic and atraumatic. Neck: Musculoskeletal: Normal range of motion and neck supple. Cardiovascular: Rate and Rhythm: Normal rate and regular rhythm. Pulses: Normal pulses. Heart sounds: Normal heart sounds. Pulmonary: Effort: Pulmonary effort is normal. Breath sounds: Normal breath sounds. Abdominal: General: Abdomen is flat. Palpations: Abdomen is soft. Skin: General: Skin is warm and dry. Capillary Refill: Capillary refill takes less than 2 seconds. Neurological: General: No focal deficit present. Mental Status: He is alert and oriented to person, place, and time. Psychiatric: Mood and Affect: Mood normal. Behavior: Behavior normal. Assessment/Plan Well adult exam - Anticipatory guidance discussed. Labs as ordered. - Patient deferred on vaccinations (influenza and Tetanus) at this time Return in about 1 year (around 08/01/2021), or if symptoms worsen or fail to improve. Emory Chan MD, MPH, AAHIVS Clinical Grinding And Spraying Supervisor, Department of Family Medicine [facility] Primary & Specialty Care - [facility] 08/01/2020 10:25 AM documented in this encounter Plan of Treatment Date Type Specialty Care Team Description 08/01/2020 Stripper [employer] Opa[employer] Apprentice Visit Phlebotomy 2, Adc Lab 08/01/2021 Office Visit Family Medicine Emory Chan MD [address] [place] [address] Dr Torres [address] [place] [address] [phone] Name Type Priority Associated Diagnoses Order S chedule FREE T4 LAB Routine Well adult exam Expected: , Expires: 2020 FREE T3 LAB Routine Well adult exam Expected: , Expires: 2020 GLYCOSYLATED HEMOGLOBIN LAB Routine Well adult exam E xpected: 08/01/2020, (A1C) Expires: 2020 COMP. METABOLIC PANEL LAB Routine Well adult exam Exp ected: 08/01/2020, (80212) Expires: 2020 CBC WITH DIFF LAB Routine Well adult exam Expected: 1 , Expires: 2020 THYROID STIMULATING HORMONE LAB Routine Well adult ex am Expected: 08/01/2020, Expires: 2020 URINALYSIS LAB Routine Well adult exam Expected: , Expires: 2020 LIPID PANEL (01938)(TOTAL LAB Routine Well adult exam Ordered: 08/01/2020 CHOLESTEROL, TRIGLYCERIDES, HDL) Health Maintenance Due Date [...] Effective Dates Phone Addre ss Type Group [facility] [id number] 2014-[place] PPO/POS PPO/POS t documented as of this encounter
--- OUTSIDE RECORDS SUMMARY | 2020-10-22 21:41 | XMS REPORT | Summary of Care ---
:1975 Author Organization [facility] Address [address] [place] [id number] Care Team Providers Name Role Phone Emory Chan MD Primary Care Provider Reason for Visit Reason Comments Yearly Visit LAB WORK Encounter Details Date Type Department Care Team Description 08/01/2020 Office Visit [facility] Pediatric Emory Chan W ell adult exam and Adult Primary MD (Primary Dx) Care- [address], [address] [place], [place] [id number] [place] [address] [phone] [id number] [phone] Allergies No Known Allergiesdocumented as of this [...] men in this age group Every exam [address] [place] [address] [facility] [employer] iTOK last reviewed this educational content on 11/25/201619991220-3430 [employer]. [address] [place] [address]. All rights reserved. 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 No pertinent family [...] improve. Emory Chan MD, MPH, AAHIVS Clinical Biomedical Photographer, Department of Family Medicine [facility] Primary & Specialty Care - ADC 08/01/2020 10:25 AM documented in this encounter Plan of Treatment Name Type Priority Associated Diagnoses Order S chedule FREE T4 LAB Routine Well adult exam Expected: , Expires: 2020 FREE T3 LAB Routine Well adult exam Expected: , Expires: 2020 GLYCOSYLATED HEMOGLOBIN LAB Routine Well adult exam E xpected: 08/01/2020, (A1C) Expires: 2020 COMP. METABOLIC PANEL LAB Routine Well adult exam Exp ected: 08/01/2020, (96917) Expires: 2020 CBC WITH DIFF LAB Routine Well adult exam Expected: 1 , Expires: 2020 THYROID STIMULATING HORMONE LAB Routine Well adult ex am Expected: 08/01/2020, Expires: 2020 URINALYSIS LAB Routine Well adult exam Expected: , Expires: 2020 LIPID PANEL ([id number])(TOTAL LAB Routine Well adult exam Ordered: 08/01/2020 [...] Phone Addre ss Type Group [facility] [id number] 2014-[place] PPO/POS PPO/POS t documented as of this encounter
--- OUTSIDE RECORDS SUMMARY | 2020-10-22 21:41 | XMS REPORT | Summary of Care ---
:1975 Author Organization [facility] Address [address] [place] [address] Care Team Providers Name Role Phone Emory Chan MD Primary Care Provider Reason for Visit Reason Comments Results Encounter Details Date Type Department Care Team Description 08/06/2020 Telephone [facility] Pediatric and Emory Walker MD Results Adult Primary Care- [address] [facility] [address] [place] [facility] [address] [place] [address] [address] [place] [address] [phone] Allergies No Known Allergiesdocumented as of this encounter (statuses as of 08/09/2020) Medications No known medicationsdocumented as of this encounter (statuses as of 08/09/2020) Active Problems Problem Noted Date Routine [facility]01[facility]2020 Redundant prepuce and phimosis 05/06/2009 documented as of this encounter (statuses as of 08/09/2020) Social History Tobacco Use Types Packs/Day Years [...] Signs Not on filedocumented in this encounter Miscellaneous Notes Telephone Encounter - Ana Paula Louis - 08/09/2020 1:49 PM CDTPatient is calling and is requesting an update on encounter below, please call patient back in regards to his lab results. elephone Encounter - Ana Paula Louis - 08/06/2020 10:13 AM CDT Patient is calling and is requesting his lab results, please call patient back in regards to this encounter. documented in this encounter Plan of Treatment Date Type Specialty Care Team Description 08/01/2021 Office Visit Family Medicine Emory Chan MD [address] [place] [address] Dr Torres [address] [place] [phone] Health Maintenance Due Date Last Done Comments [...] Effective Dates Phone Addre ss Type Group [facility] [id number] 2014-[employer] PPO/POS PPO/POS t documented as of this encounter
--- NOTE | 2020-10-22 22:42 | EDPHYS ---
Physician Documentation [facility] Name: Eliazar Kirby Age: 45 yrs Sex: Male : 1975 Arrival Date: 10/22/2020 Time: 21:41 Bed 23 Private MD: ED Physician Gilberto Sherman HPI: 10/22 22:38 This 45 yrs old Black Male presents to ER via Ambulatory with complaints of Shoulder kb Pain. 22:38 The patient or guardian complains of decreased range of motion, an injury, pain, kb swelling, tenderness. right shoulder. Context: The problem was sustained outdoors, resulted from pulling on fuel pump, The patient reports no decreased range of motion. The patient reports no obvious deformity. Onset: The symptoms/episode began/occurred yesterday. Modifying factors: the symptoms are alleviated by nothing. The symptoms are aggravated by movement. Associated signs and symptoms: The patient has no apparent associated signs or symptoms. Severity of symptoms: At their worst the symptoms were moderate, in the emergency department the symptoms are unchanged. Treatment prior to arrival includes: no previous treatment. The patient has not experienced similar symptoms in the past. The patient has not recently seen a physician. Historical: - Allergies: 22:00 No Known Allergies; ll1 - PSHx: 22:00 None; ll1 - Immunization history:: Flu vaccine is not up to date. - Social history:: Smoking status: Patient denies any tobacco usage or history of. ROS: 22:38 Constitutional: Negative for fever, chills, and weight loss, Cardiovascular: Negative kb for chest pain, palpitations, and edema, Respiratory: Negative for shortness of breath, cough, wheezing, and pleuritic chest pain, Abdomen/GI: Negative for abdominal pain, nausea, vomiting, diarrhea, and constipation, Skin: Negative for injury, rash, and discoloration, Neuro: Negative for headache, weakness, numbness, tingling, and seizure. 22:38 MS/extremity: Positive for decreased range of motion, pain, swelling, tenderness, of the posterior aspect of right shoulder and anterior aspect of right shoulder. Exam: 22:35 Constitutional: This is a well developed, well nourished patient who is awake, alert, kb and in no acute distress. Head/Face: Normocephalic, atraumatic. Chest/axilla: Normal chest wall appearance and motion. Nontender with no deformity. No lesions are appreciated. Cardiovascular: Regular rate and rhythm with a normal S1 and S2. No gallops, murmurs, or rubs. Normal PMI, no JVD. No pulse deficits. Respiratory: Lungs have equal breath sounds bilaterally, clear to auscultation and percussion. No rales, rhonchi or wheezes noted. No increased work of breathing, no retractions or nasal flaring. Abdomen/GI: Soft, non-tender, with normal bowel sounds. No distension or tympany. No guarding or rebound. No evidence of tenderness throughout. Skin: Warm, dry with normal turgor. Normal color with no rashes, no lesions, and no evidence of cellulitis. Neuro: Awake and alert, GCS 15, oriented to person, place, time, and situation. Cranial nerves II-XII grossly intact. Motor strength 5/5 in all extremities. Sensory grossly intact. Cerebellar exam normal. Normal gait. 22:35 Musculoskeletal/extremity: Extremities: grossly normal except: noted in the right trapezius, right scapular area, anterior aspect of right shoulder and posterior aspect of right shoulder: decreased ROM, pain, swelling, tenderness, ROM: limited active range of motion due to pain, in the anterior aspect of right shoulder, Circulation is intact in all extremities. Sensation intact. Vital Signs: 21:57 BP 107 / 75; Pulse 65; Resp 16; Temp 97.8; Pulse Ox 96% on R/A; Weight 83.91 kg; Height ll1 5 ft. 7 in. (170.18 cm); Pain 9/10; 21:57 Body Mass Index 28.97 (83.91 kg, 170.18 cm) ll1 MDM: 22:02 Patient medically screened. kb 22:35 Data reviewed: vital signs, nurses notes. Data interpreted: Pulse oximetry: on room air kb is 96 %. Interpretation: normal. Counseling: I had a detailed discussion with the patient and/or guardian regarding: the historical points, exam findings, and any diagnostic results supporting the discharge/admit diagnosis, radiology results, the need for outpatient follow up, a orthopedic surgeon, to return to the emergency department if symptoms worsen or persist or if there are any questions or concerns that arise at home. 10/22 22:00 Order name: Shoulder Right (2 View) XRAY kb 10/22 22:35 Order name: Elizabeth; Complete Time: 22:47 kb Administered Medications: 23:00 Drug: Morgan (7.5 mg-325 mg) 1 tabs Route: PO; vg1 23:00 Follow up: Response: Medication administered at discharge. vg1 23:00 Drug: Ibuprofen 800 mg Route: PO; vg1 23:00 Follow up: Response: Medication administered at discharge. vg1 Disposition: 10/23 06:49 Co-signature as Attending Physician, Gilberto Sherman MD I agree with the assessment and april plan of care. Disposition: 10/22/20 22:41 Discharged to Home. Impression: Pain in right shoulder. - Condition is Stable. - Discharge Instructions: Cryotherapy, Jlcg-et-Urly, Shoulder Range of Motion Exercises, Shoulder Pain, [id number]. - Prescriptions for Ibuprofen 800 mg Oral Tablet - take 1 tablet by ORAL route every 8 hours As needed take with food; 30 tablet. Cyclobenzaprine 10 mg Oral Tablet - take 1 tablet by ORAL route every 8 hours As needed; 30 tablet. - Medication Reconciliation Form, Thank You Letter, Antibiotic Education, Prescription Opioid Use form. - Follow up: Emergency Department; When: As needed; Reason: Worsening of condition. Follow up: Private Physician; When: 2 - 3 days; Reason: Recheck today's complaints, Continuance of care, Re-evaluation by your physician. Signatures: Dispatcher [employer] EDEdna Mandujano, IT SECURITY ADMINISTRATOR-C IT SECURITY ADMINISTRATOR-Gilberto Goodson MD MD cha Garcia, Victoria, RN RN vg1 Mark Driver RN RN 1 Corrections: (The following items were deleted from the chart) 10/22 23:00 22:41 10/22/2020 22:41 Discharged to Home. Impression: Pain in right shoulder. vg1 Condition is Stable. Discharge Instructions: Cryotherapy, [id number], Shoulder Range of Motion Exercises, Shoulder Pain, Ewqb-jf-Usue. Prescriptions for Ibuprofen 800 mg Oral Tablet - take 1 tablet by ORAL route every 8 hours As needed take with food; 30 tablet, Cyclobenzaprine 10 mg Oral Tablet - take 1 tablet by ORAL route every 8 hours As needed; 30 tablet. and Forms are Medication Reconciliation Form, Thank You Letter, Antibiotic Education, Prescription Opioid Use. Follow up: Emergency Department; When: As needed; Reason: Worsening of condition. Follow up: Private Physician; When: 2 - 3 days; Reason: Recheck today's complaints, Continuance of care, Re-evaluation by your physician. kb
--- NOTE | 2020-10-22 22:42 | ER ---
Nurse's Notes [facility] Name: Eliazar Kirby Age: 45 yrs Sex: Male : 1975 Arrival Date: 10/22/2020 Time: 21:41 Bed 23 Private MD: Diagnosis: Pain in right shoulder Presentation: 10/22 21:57 Chief complaint: Patient states: R shoulder pain since last night after pulling on ll1 heavy hose. PMS intact. Coronavirus screen: Client denies travel out of the [place] in the last 14 days. At this time, the client does not indicate any symptoms associated with coronavirus-19. Ebola Screen: Patient denies travel to an Ebola-affected area in the 21 days before illness onset. Initial Sepsis Screen: Does the patient meet any 2 criteria? No. Patient's initial sepsis screen is negative. Does the patient have a suspected source of infection? No. Patient's initial sepsis screen is negative. Risk Assessment: Do you want to hurt yourself or someone else? Patient reports no desire to harm self or others. Onset of symptoms was October 21, 2020. 21:57 Method Of Arrival: Ambulatory 1 21:57 Acuity: SUKHI 4 ll1 Historical: - Allergies: 22:00 No Known Allergies; ll1 - PSHx: 22:00 None; ll1 - Immunization history:: Flu vaccine is not up to date. - Social history:: Smoking status: Patient denies any tobacco usage or history of. Assessment: 22:20 General: Appears in no apparent distress. comfortable, Behavior is calm, cooperative. vg1 22:20 Pain: Complains of pain in right shoulder Pain currently is 9 out of 10 on a pain vg1 scale. Pain began yesterday. Neuro: Level of Consciousness is awake, alert, obeys commands, Oriented to person, place, time, situation. Cardiovascular: Capillary refill < 3 seconds in right fingers. Respiratory: Airway is patent Respiratory effort is even, unlabored, Respiratory pattern is regular, symmetrical. GI: No signs and/or symptoms were reported involving the gastrointestinal system. : No signs and/or symptoms were reported regarding the genitourinary system. EENT: No signs and/or symptoms were reported regarding the EENT system. Derm: Skin is intact, is healthy with good turgor. Musculoskeletal: Range of motion: limited in right shoulder. 22:26 Reassessment: Xray at bedside. vg1 Vital Signs: 21:57 BP 107 / 75; Pulse 65; Resp 16; Temp 97.8; Pulse Ox 96% on R/A; Weight 83.91 kg; Height ll1 5 ft. 7 in. (170.18 cm); Pain 9/10; 21:57 Body Mass Index 28.97 (83.91 kg, 170.18 cm) ll1 ED Course: 21:41 Patient arrived in ED. cl3 21:59 Triage completed. ll1 22:00 Edna Gauthier FNP-C is PHCP. kb 22:00 Gilberto Sherman MD is Attending Physician. kb 22:00 Arm band placed on. ll1 22:22 Grace Hirsch, RN is Primary Nurse. vg1 22:45 Shoulder Right (2 View) XRAY In Process Unspecified. EDMS 22:47 Sling applied to right arm. jp3 Administered Medications: 23:00 Drug: Laquey (7.5 mg-325 mg) 1 tabs Route: PO; vg1 23:00 Follow up: Response: Medication administered at discharge. vg1 23:00 Drug: Ibuprofen 800 mg Route: PO; vg1 23:00 Follow up: Response: Medication administered at discharge. vg1 Outcome: 22:41 Discharge ordered by . kb 23:00 Patient left the ED. vg1 Signatures: Dispatcher [employer] EDTX Edna Gauthier FNP-C FNP-Best Ro jp3 Echo Driver cl3 Grace Hirsch, SHAWN ESCOBAR vg1 Mark Driver RN RN 1
[2020-10-22 23:05] VITALS: BP 107/75; TEMP 97.8; O2SAT 96
[2020-10-22] MEDS ORDERED: HYDROCODONE/APAP 7.5/325 MG TAB ONE (23:10)
[2020-10-22] MEDS ORDERED: IBUPROFEN 400 MG TAB ONE (23:10)
--- NOTE | 2020-10-23 07:56 | RAD REPORT ---
EXAM DESCRIPTION: RAD - Shoulder Right 2 View - 10/22/2020 10:45 pm CLINICAL HISTORY: Right shoulder pain FINDINGS: No fracture or dislocation is seen. Osteoarthritis involves the glenohumeral joint consist ing of osteophytes and subchondral cysts. Mild osteoarthritis involves the AC joint. The humeral head is high riding which may indicate a chronic rotator cuff tear
== END 2020-10-22 23:00 | disposition home or self-care (01) ==
LOC: ER 21:38
DX: M25.511 Pain in right shoulder (principal)
CPT/HCPCS: 99283